=== PATIENT | female | born 1945 | race Caucasian/White ===

== ENCOUNTER 2017-01-19 02:13 | Emergency (ER) | payer MEDICARE, OTHER ==
[2017-01-19] MEDS ORDERED: NS 0.9% 1000 ML* 1,000 ML IV ONE (02:24)
[2017-01-19] MEDS ORDERED: Ketorolac INJ* 30 MG/ML 1 ML VIAL IV PUSH ONE (02:24)
[2017-01-19] MEDS ORDERED: Ondansetron INJ* 2 MG/ML VIAL IV ONE ×2 (02:24→04:24)
[2017-01-19] MEDS ORDERED: Ondansetron INJ* 2 MG/ML VIAL ONE (02:25)
[2017-01-19] MEDS ORDERED: Ketorolac INJ* 30 MG/ML 1 ML VIAL ONE (02:25)
[2017-01-19 02:33] LABS: Add Diff/Slide Review? Slide Review Added; Comments Flag Yes; Hematocrit 42 % (35-47); Hemoglobin 13.8 g/dl (12.0-16.0); Mean Corpuscular HGB Conc 33 g/dl (31-36); Mean Corpuscular Hemoglobin 30 pg (27-31); Mean Corpuscular Volume 90 fL (80-97); Mean Platelet Volume 8 um3 (7.4-10.4); Red Blood Count 4.64 10^6/ul (4.0-5.4); Red Cell Distribution Width 14 % (10.5-15); White Blood Count 10.7 10^3/ul (3.5-10.8)
[2017-01-19 02:46] LABS: Albumin 3.9 g/dL (3.2-5.2); BUN/Creatinine Ratio 24.1 (8-20); C Reactive Protein 1.72 mg/L (< 5.00); Calcium 9.3 mg/dL (8.6-10.3); EGFR African American 86.9 (>60); EGFR Non-African American 67.6 (>60); Globulin 3.7 g/dL (2-4); Magnesium 1.9 mg/dL (1.9-2.7); Potassium 3.8 mmol/L (3.5-5.0); Total Bilirubin 0.4 mg/dL (0.2-1.0); Total Protein 7.6 g/dL (6.4-8.9)
--- NOTE | 2017-01-19 03:15 | ED ---
Jenny Mansfield Erika, scribed for Bradford Yap MD on 01/19/17 at 0226 . GI/ HPI - HPI Summary HPI Summary: Patient is a 71-year-old female presenting to the ED with a CC of waves of severe nausea. Patient reports she developed some nausea the night of 01/18/2017 , but it significantly worsening around 01:30 today. Patient also reports vomiting. She states that these symptoms feel the same as when she has had kidney stones in the past. - History of Current Complaint Chief Complaint: EDNauseaVomitDiarrh Time Seen by Provider: 01/19/17 02:19 Stated Complaint: POSS KIDNEY STONE Hx Obtained From: Patient Onset/Duration: Started Hours Ago, Atraumatic, Still Present Timing: Intermittent - comes in waves Severity: Mild Current Severity: Moderate Pain Intensity: 6 Location of Pain: Flank Associated Signs and Symptoms: Positive: Nausea, Vomiting Alleviating Factor(s): Nothing - Additional Pertinent History Primary Care Physician: JUSTINA - Allergy/Home Medications Allergies/Adverse Reactions: Allergies Allergy/AdvReac Type Severity Reaction Status Date / Time No Known Allergies Allergy Verified 04/01/16 11:48 PMH/Surg Hx/FS Hx/Imm Hx GI History: Reports: Hx Gastroesophageal Reflux Disease - MILD ACID REFLUX DIET CONTROL History: Reports: Hx Kidney Stones - LEFT, Other Problems/Disorders - Stent Musculoskeletal History: Reports: Hx Arthritis - KNEES, FINGERS Sensory History: Reports: Hx Cataracts - BEGINNING, BEING WATCHED, Hx Contacts or Glasses - READING GLASSES Denies: Hx Hearing Aid Opthamlomology History: Reports: Hx Cataracts - BEGINNING, BEING WATCHED, Hx Contacts or Glasses - READING GLASSES - Surgical History Surgery Procedure, Year, and Place: 1968 BILATERAL TUBAL LIGATION,. 04/27/2014 CYSTOSCOPY, LEFT RETROGRADE PYELOGRAPHY, [place] [facility] [place]/09/2014 CYSTOSCOPY, ESWL LEFT UREETERAL CALCULUS, REMOVAL LEFT STENT, [facility] [place]. 03/22/2016 CYSTOSCOPY, LEFT RETROGRADE PYELOGRAPHY, LEFT URETERAL STENT INSERTION, [facility] [place]x Anesthesia Reactions: No Infectious Disease History: No Infectious Disease History: Denies: Traveled Outside the [place] in Last 30 Days - Family History Known Family History: Positive: Other - leukemia - Social History Alcohol Use: Rare Alcohol Amount: WINE Hx Substance Use: No Substance Use Type: Reports: None Hx Tobacco Use: No Smoking Status (MU): Never Smoked Tobacco Have You Smoked in the Last Year: No Review of Systems Positive: Vomiting, Nausea Positive: flank pain All Other Systems Reviewed And Are Negative: Yes Physical Exam Triage Information Reviewed: Yes Vital Signs On Initial Exam: Initial Vitals Temp Pulse Resp BP Pulse Ox 98.4 F 94 21 152/91 100 01/19/17 02:16 01/19/17 02:16 01/19/17 02:16 01/19/17 02:16 01/19/17 02:16 Vital Signs Reviewed: Yes Appearance: Positive: Well-Appearing, Pain Distress - mild discomfort Skin: Positive: Warm Head/Face: Positive: Normal Head/Face Inspection Eyes: Positive: JUANA Neck: Positive: Supple Respiratory/Lung Sounds: Positive: Clear to Auscultation, Breath Sounds Present Cardiovascular: Positive: RRR Abdomen Description: Positive: Nontender, No Organomegaly, Soft. Negative: CVA Tenderness (R), CVA Tenderness (L), Distended, Guarding Bowel Sounds: Positive: Present Musculoskeletal: Positive: Strength/ROM Intact Neurological: Positive: Sensory/Motor Intact, Alert, Oriented to Person Place, Time Psychiatric: Positive: Affect/Mood Appropriate Diagnostics - Vital Signs Vital Signs Temp Pulse Resp BP Pulse Ox 01/19/17 02:16 98.4 F 94 21 152/91 100 - Laboratory Lab Results: Lab Results 01/19/17 01/19/17 01/19/17 Range/Units 02:24 02:24 02:24 WBC 10.7 (3.5-10.8) 10^3/ul RBC 4.64 (4.0-5.4) 10^6/ul Hgb 13.8 (12.0-16.0) g/dl Hct 42 (35-47) % MCV 90 (80-97) fL MCH 30 (27-31) pg MCHC 33 (31-36) g/dl RDW 14 (10.5-15) % Plt Count 227 (150-450) 10^3/ul MPV 8 (7.4-10.4) um3 Neut % (Auto) 77.0 (38-83) % Lymph % (Auto) 17.3 L (25-47) % [place] % (Auto) 2.9 (1-9) % Eos % (Auto) 1.7 (0-6) % Baso % (Auto) 1.1 (0-2) % Absolute Neuts (auto) 8.2 H (1.5-7.7) 10^3/ul Absolute Lymphs (auto) 1.8 (1.0-4.8) 10^3/ul Absolute Monos (auto) 0.3 (0-0.8) 10^3/ul Absolute Eos (auto) 0.2 (0-0.6) 10^3/ul Absolute Basos (auto) 0.1 (0-0.2) 10^3/ul Absolute Nucleated RBC 0 10^3/ul Nucleated RBC % 0 Sodium 137 (133-145) mmol/L Potassium 3.8 (3.5-5.0) mmol/L Chloride 103 (101-111) mmol/L Carbon Dioxide 26 (22-32) mmol/L Anion Gap 8 (2-11) mmol/L BUN 20 (6-24) mg/dL Creatinine 0.83 (0.51-0.95) mg/dL Est GFR ( Amer) 86.9 (>60) Est GFR (Non-Af Amer) 67.6 (>60) BUN/Creatinine Ratio 24.1 H (8-20) Glucose 116 H (70-100) mg/dL Lactic Acid 1.9 (0.5-2.0) mmol/L Calcium 9.3 (8.6-10.3) mg/dL Magnesium 1.9 (1.9-2.7) mg/dL Total Bilirubin 0.40 (0.2-1.0) mg/dL AST 21 (13-39) U/L ALT 19 (7-52) U/L Alkaline Phosphatase 53 (34-104) U/L C-Reactive Protein 1.72 (< 5.00) mg/L Total Protein 7.6 (6.4-8.9) g/dL Albumin 3.9 (3.2-5.2) g/dL Globulin 3.7 (2-4) g/dL Albumin/Globulin Ratio 1.1 (1-3) Lipase 55 (11.0-82.0) U/L Result Diagrams: 01/19/17 02:24 01/19/17 02:24 Lab Statement: Any lab studies that have been ordered have been reviewed, and results considered in the medical decision making process. - CT CT A/P W/O CT Interpretation Completed By: Radiologist - Imaging python developer - 2 mm mid right ureteral stone without hydroureter. Nonobstructing left renal stone or stones. Moderate sized hiatal hernia. Fibroids Re-Evaluation - Re-Evaluation First Eval Change: Improved GIGU Course/Dx - Course Assessment/Plan: A 71 y/o F presents to the ED with a CC of pain, nausea, and vomiting. Patient reports symptoms are similar to when she has had kidney stones in the past. Blood work and UA obtained. CT A/P shows 2 mm mid right ureteral stone without hydroureter, nonobstructing left renal stone or stones, moderate sized hiatal hernia, and fibroids. Patient was given Toradol, zofran, morphine, and IV fluids in the ED course. She will be discharged home with follow up from urology. - Diagnoses Provider Diagnoses: Renal colic Discharge - Discharge Plan Condition: Improved Disposition: HOME Meds/Orders/Equipment: US ABDOMEN LIMITED [US] Location: Determined By Patient Patient Education Materials: Kidney Stones (ED) Referrals: Anisa Alarcon MD [Primary Care Provider] - Paulo Ronquillo MD [Medical Doctor] - Additional Instructions: Please follow up with urology. The documentation as recorded by the Jenny worthington Erika accurately reflects the service I personally performed and the decisions made by , Bradford Yap MD.
[2017-01-19] MEDS ORDERED: Morphine INJ* 2 MG/ML 1 ML SYRINGE IV ONE (03:39)
[2017-01-19 04:02] LABS: Urine Bacteria Absent (Absent); Urine Bilirubin Negative (Negative); Urine Glucose Negative (Negative); Urine Nitrite Negative (Negative)
[2017-01-19] MEDS ORDERED: Ondansetron ODT TAB* 4 MG ONE (05:01)
[2017-01-19 05:12] VITALS: BP 156/82
[2017-01-19] MEDS ORDERED: Ondansetron ODT TAB* 4 MG PO ONE (05:12)
--- NOTE | 2017-01-19 08:03 | RAD ---
INDICATION: Flank abdominal pain. COMPARISON: Comparison is made with a prior CT of the abdomen and pelvis from March 22, 2016. TECHNIQUE: A CT scan of the abdomen and pelvis was performed without intravenous or oral contrast. Contiguous axial sections were obtained from the lung bases through the symphysis pubis. Images were reconstructed in the coronal and sagittal planes. FINDINGS: The lung bases are clear. No pleural effusion is present. The liver and spleen are normal in size. There is a focal coarse calcification in the posterior segment of the right hepatic lobe suggestive of old granulomatous disease. No other focal abnormalities are seen on this noncontrast study. No calcific gallstones are noted. The pancreas appears to be within normal limits. The adrenal glands appear to be within normal limits. There is a small hyperdense cyst present within the midportion of the left kidney measuring 1.6 cm in size which is unchanged. There are nonobstructing calculi in the lower pole of the left kidney measuring up to 1.0 cm in size. There are multiple bilateral peripelvic renal cysts which are more prominent in the right kidney and unchanged. There is a small calcific density adjacent to the proximal right ureter measuring approximately 2 mm in size which is unchanged change and likely represents a phlebolith. No ureteral or bladder calculi are seen. The aorta is normal in caliber with mild calcific plaque present. No significant enlarged retroperitoneal lymph nodes are seen. The stomach, small and large bowel appear nondistended. There is a moderate sized lateral hernia. The appendix is not well seen. There is no evidence for diverticulitis or colitis. There is a small periumbilical hernia containing fat. The uterus is mildly enlarged with multiple calcified leiomyoma. No free intraperitoneal air or fluid is seen. No significant focal osseous abnormality is seen. IMPRESSION: 1. NONOBSTRUCTING LEFT RENAL CALCULI. 2. MULTIPLE BILATERAL PERIPELVIC RENAL CYSTS AND LEFT HEMORRHAGIC CYST, UNCHANGED. 3. MILDLY ENLARGED UTERUS WITH MULTIPLE CALCIFIED LEIOMYOMA. 4. MODERATE SIZE HIATAL HERNIA.
== END 2017-01-19 05:14 | disposition home or self-care (01) ==
LOC: ED 02:13
DX: N23 Unspecified renal colic (principal); R11.2 Nausea with vomiting, unspecified; R10.84 Generalized abdominal pain
CPT/HCPCS: 36415; 74176; 80053; 81003; 81015; 83605; 83690; 83735; 85025; 86140; 87086; 96374; 96375; 99283; J1885; J2405

== ENCOUNTER 2024-06-30 08:46 | Observation (INO) ==
[2024-06-30] MEDS ORDERED: cefTRIAXone 2 GM ADDV.VIAL 2 GM in NS 0.9% 100 ml BAG 100 ML IV ONE (10:10)
[2024-06-30] MEDS: LACTATED RINGERS IV ONE (10:29)
[2024-06-30 10:56] LABS: ABS Lymphocytes 0.6 10^3/uL (1.0-4.8); ABS Monocytes 0.6 10^3/uL (0.0-0.9); ABS Neutrophils 2.7 10^3/uL (1.5-7.6); Eosinophil % 0.1 %; Hematocrit 37.3 % (35-45); Hemoglobin 12.7 g/dL (11.5-14.3); Lymphocyte % 15.9 %; Mean Corpuscular Hemoglobin 31.2 pg (27-33); Mean Corpuscular Volume 91.8 fL (80-97); Mean Platelet Volume 7.6 fL (7.5-11.2); Platelet Count 193 10^3/uL (150-450); Red Blood Count 4.07 10^6/uL (3.63-4.92); White Blood Count 3.9 10^3/uL (3.8-11.8)
[2024-06-30] MEDS: Ondansetron 4 mg VIAL 2 MG/ML 2 ml VIAL IV ONE (11:05)
[2024-06-30 11:13] LABS: INR 1.12 (0.85-1.14)
[2024-06-30 11:36] LABS: Urine Appearance Clear; Urine Bilirubin Negative (Negative); Urine Blood Negative (Negative); Urine Color Light-Yellow; Urine Glucose Negative (Negative); Urine Ketones 2+ (Negative); Urine Nitrite Negative (Negative); Urine Protein Trace (Negative); Urine Specific Gravity 1.023 (1.002-1.030); Urine Urobilinogen Negative (Negative); Urine pH 7.5 (5.0-8.0)
[2024-06-30] MEDS: cefTRIAXone 2 gm/50 mL D5W 2 GM/50 ML BAG IV ONE (11:42)
[2024-06-30 11:45] LABS: Albumin/Globulin Ratio 1.4 (1-3); C Reactive Protein 4.22 mg/L (<8.01); Creatinine, Serum 0.79 mg/dL (0.51-0.95); Globulin 2.9 g/dL (2-4); Potassium 3.8 mmol/L (3.5-5.0); Total Bilirubin 0.5 mg/dL (0.2-1.0); Total Protein 6.9 g/dL (6.4-8.9)
[2024-06-30] MEDS ORDERED: Ondansetron 4 mg VIAL 2 MG/ML 2 ml VIAL IV PRN ×2 (11:59→13:05)
[2024-06-30] MEDS: Acetaminophen IV 1 GM/100ML 1,000 MG/100 ML BAG IV ONE ×2 (12:21→18:55)
[2024-06-30 12:25] LABS: High Sensitivity Troponin 1 Hr 4 pg/mL (<15)
[2024-06-30] MEDS ORDERED: Naloxone 0.4 mg VIAL 0.4 mg/ml 1 ml VIAL IV PRN (13:05)
[2024-06-30] MEDS ORDERED: Metoclopramide 5 MG/ML VIAL (10 mg) IV PRN (13:05)
[2024-06-30] MEDS ORDERED: fentaNYL 100 mcg/2 ml 50 MCG/ML VIAL IV PRN (13:05)
[2024-06-30] MEDS ORDERED: Lactated Ringers 1000 ml BAG 1,000 ML IV SCH (14:00)
[2024-06-30] MEDS ORDERED: NS 0.45% 1000 ml BAG 1,000 ML IV SCH (14:00)
[2024-06-30] MEDS: Buffered Lidocaine 1% SYRIN 1 ml INTRADERM ONE (18:56)
[2024-06-30] MEDS: Scopolamine 1 mg/72hr PATCH TRANSDERM ONE (18:56)
[2024-06-30] MEDS: Enoxaparin 40 MG/0.4 ML SYR SUBCUT SCH (18:56)
[2024-06-30] MEDS: Remdesivir 100 mg Vial 200 MG in NS 0.9% 250 ml 210 ML IV ONE (18:57)
[2024-06-30] MEDS: Lactated Ringers 1000 ml BAG 1,000 ML IV ONE (19:36)
[2024-06-30] MEDS: Ondansetron ODT 4 mg TAB 4 MG TAB SL PRN (20:46)
[2024-07-01 06:17] LABS: Hematocrit 34.7 % (35-45); Hemoglobin 11.8 g/dL (11.5-14.3); Mean Corpuscular Hemoglobin 31.5 pg (27-33); Mean Corpuscular Volume 92.7 fL (80-97); Mean Platelet Volume 7.7 fL (7.5-11.2); Platelet Count 142 10^3/uL (150-450); Red Blood Count 3.75 10^6/uL (3.63-4.92); Red Cell Distribution Width 14.2 % (12-17); White Blood Count 2.9 10^3/uL (3.8-11.8)
[2024-07-01 06:53] LABS: C Reactive Protein 6.65 mg/L (<8.01); Calcium 8.4 mg/dL (8.6-10.3); Creatinine, Serum 0.72 mg/dL (0.51-0.95); Magnesium 1.7 mg/dL (1.9-2.7); Potassium 3.9 mmol/L (3.5-5.0)
[2024-07-01] MEDS ORDERED: Benzocaine (plain) Lozenge 15 MG MT PRN (08:10)
[2024-07-01 08:19] LABS: ABS Lymphocytes 1.1 10^3/uL (1.0-4.8); ABS Monocytes 0.6 10^3/uL (0.0-0.9); ABS Neutrophils 1.1 10^3/uL (1.5-7.6); Eosinophil % 0.1 %; Lymphocyte % 39.6 %; Nucleated Red Blood Cells % 0.1 %/100WBC (0.0-0.8); RBC Morphology Normal (Normal)
[2024-07-01] MEDS: Benzocaine/Menthol LOZ MT PRN (10:03)
[2024-07-01] MEDS ORDERED: cefTRIAXone 1 gm/50 mL D5W 1 GM/50 ML BAG IV SCH (11:00)
[2024-07-01] MEDS ORDERED: Remdesivir 100 mg Vial 100 MG in NS 0.9% 250 ml 230 ML IV SCH (21:00)
[2024-07-02] MEDS: Senna TAB 8.6 mg TAB PO PRN (01:37)
[2024-07-02 05:09] VITALS: BP 118/67
[2024-07-02 05:54] LABS: Hematocrit 34.5 % (35-45); Hemoglobin 11.5 g/dL (11.5-14.3); Mean Corpuscular Hemoglobin 30.4 pg (27-33); Mean Corpuscular Hgb Conc 33.2 g/dL (31-36); Mean Corpuscular Volume 91.5 fL (80-97); Mean Platelet Volume 8.2 fL (7.5-11.2); Platelet Count 147 10^3/uL (150-450); Red Blood Count 3.77 10^6/uL (3.63-4.92); Red Cell Distribution Width 13.8 % (12-17); White Blood Count 3.9 10^3/uL (3.8-11.8)
[2024-07-02 06:11] LABS: Albumin 3.5 g/dL (3.2-5.2); Albumin/Globulin Ratio 1.3 (1-3); Calcium 8.3 mg/dL (8.6-10.3); Creatinine, Serum 0.72 mg/dL (0.51-0.95); Globulin 2.6 g/dL (2-4); Magnesium 1.8 mg/dL (1.9-2.7); Potassium 3.7 mmol/L (3.5-5.0); Total Bilirubin 0.4 mg/dL (0.2-1.0); Total Protein 6.1 g/dL (6.4-8.9)
[2024-07-02 08:00] LABS: ABS Lymphocytes 1.3 10^3/uL (1.0-4.8); ABS Monocytes 0.7 10^3/uL (0.0-0.9); ABS Neutrophils 1.9 10^3/uL (1.5-7.6); ABS Nucleated RBC 0.01 10^3/ul; Eosinophil % 0.1 %; Lymphocyte % 34.1 %; Nucleated Red Blood Cells % 0.1 %/100WBC (0.0-0.8); RBC Morphology Normal (Normal)
== END 2024-07-02 10:05 | disposition home or self-care (01) ==
LOC: EDHOLD 08:46 → ED 08:46 → AA 12:26 → SSU 16:45 → MEDTELE 19:57
PROVIDERS: ADMIT Internal Medicine; ATTEND Internal Medicine